=== PATIENT | male | born 1975 | race Two or more races ===

== ENCOUNTER 2018-02-25 11:01 | Emergency (ER) | payer MEDICAID ==
[~2018-02-25] VITALS: Ht 180.3 cm; Wt 130.0 kg
[2018-02-25 12:06] LABS: EOSINOPHILS % 1.7 % (0.0-5.0); HEMATOCRIT. 34.7 % (42.0-52.0); HEMOGLOBIN. 11.4 g/dL (14.0-18.0); LYMPHOCYTES % 35.7 % (20.0-50.0); MEAN CORPUSCULAR HEMOGLOBIN 31.1 pg (28.0-32.0); MEAN CORPUSCULAR VOLUME 94.5 fL (80.0-94.0); MEAN PLATELET VOLUME 8.4 fl (7.4-10.4); MONOCYTES % 8.9 % (2.0-8.0); NEUTROPHILS % 52.7 % (40.0-76.0); PLATELET 294 x1000/uL (130-400); RED BLOOD CELL COUNT 3.68 mill/uL (4.7-6.1); RED CELL DISTRIBUTION WIDTH 14.8 % (11.6-14.6)
[2018-02-25 12:07] LABS: CHLORIDE 98 mEq/L (98-107)
[2018-02-25 13:58] LABS: INR 3.1; PARTIAL THROMBOPLASTIN TIME 60.6 sec (23.4-31.0); PROTHROMBIN TIME 30.3 sec (9.1-11.1)
[2018-02-25 16:05] VITALS: BP 156/75
== END 2018-02-25 16:14 | disposition home or self-care (01) ==
LOC: ER 11:18 → CANRESERV 12:13 → ENRESERV 12:13 → ER 16:14 → CANBEDREQ 16:56
DX: T82.838A Hemorrhage due to vascular prosthetic devices, implants and grafts, initial encounter (principal); Y82.8 Other medical devices associated with adverse incidents; Y92.098 Other place in other non-institutional residence as the place of occurrence of the external cause; I12.0 Hypertensive chronic kidney disease with stage 5 chronic kidney disease or end stage renal disease; N18.6 End stage renal disease; E11.22 Type 2 diabetes mellitus with diabetic chronic kidney disease; E11.65 Type 2 diabetes mellitus with hyperglycemia; R74.8 Abnormal levels of other serum enzymes; R79.1 Abnormal coagulation profile; D64.9 Anemia, unspecified; Z99.2 Dependence on renal dialysis; Z79.899 Other long term (current) drug therapy; Z88.0 Allergy status to penicillin; Z88.1 Allergy status to other antibiotic agents
CPT/HCPCS: 12001; 36415; 93005; 99284

== ENCOUNTER 2022-06-29 12:23 | Inpatient (IN) | payer MEDICAID ==
[~2022-06-29] VITALS: Ht 198.1 cm; Wt 137.9 kg
[2022-06-29] VITALS: BP 126/78
[2022-06-29 15:30] LABS: HEMATOCRIT. 35.4 % (42.0-52.0); HEMOGLOBIN. 11.9 g/dL (14.0-18.0); MEAN CORPUSCULAR VOLUME 98.3 fL (80.0-94.0); MEAN PLATELET VOLUME 8.4 fl (7.4-10.4); PLATELET 111 x1000/uL (130-400); RED CELL DISTRIBUTION WIDTH 14.8 % (11.6-14.6)
[2022-06-29 15:37] LABS: CHLORIDE 91 mEq/L (98-107)
[2022-06-29] MEDS ORDERED: ENOXAPARIN 120MG/0.8ML SYR SUBCUT ONE (16:15)
[2022-06-29] MEDS ORDERED: ASPIRIN 325MG EC TABLET PO ONE (16:15)
[2022-06-29] MEDS ORDERED: ENOXAPARIN 150MG/ML SYR SUBCUT NR ×2 (16:45)
[2022-06-29] MEDS ORDERED: CALCIUM CHLORIDE 1GM/10ML SYR IV ONE (17:15)
[2022-06-29] MEDS ORDERED: HYDRALAZINE 20MG/ML VIAL IV PRN (18:00)
[2022-06-29] MEDS ORDERED: DEXTROSE 50% WATER 50ML SYRINGE IV PRN (18:15)
[2022-06-29] MEDS ORDERED: METOCLOPRAMIDE HCL 10MG/2ML VIAL IV NR (18:15)
[2022-06-29] MEDS: INSULIN LISPRO 100 UNITS/ML SUBCUT SCH ×2 (19:47→21:00)
[2022-06-29] MEDS ORDERED: CALCIUM CHLORIDE 1GM/10ML SYR IV NR (20:45)
[2022-06-29 20:48] LABS: PLATELET ESTIMATE DECREASED
[2022-06-29] MEDS: BLOOD SUGAR DIAGNOSTIC STRIP TEST SCH (20:56)
[2022-06-29 21:29] VITALS: BP 168/94
[2022-06-29] MEDS: INSULIN GLARGINE 100 UNITS/ML SUBCUT SCH (23:21)
[2022-06-30] VITALS (14 sets, daily range): BP systolic 89–155; BP diastolic 32–130
[2022-06-30 00:03] LABS: CREATINE KINASE MB FRACTION 2.8 ng/mL (0.5-3.6)
[2022-06-30] MEDS: ONDANSETRON HCL 4MG/2ML INJ IV PRN (03:51)
[2022-06-30] MEDS: ACETAMINOPHEN 325MG TABLET PO PRN ×2 (03:51→19:33)
[2022-06-30] MEDS ORDERED: ENOXAPARIN 150MG/ML SYR SUBCUT NR (05:00)
[2022-06-30] MEDS: BLOOD SUGAR DIAGNOSTIC STRIP TEST SCH ×4 (06:28→21:17)
[2022-06-30] MEDS: INSULIN LISPRO 100 UNITS/ML SUBCUT SCH ×7 (06:29→21:15)
[2022-06-30] MEDS ORDERED: VANCOMYCIN 1G PREMIX 200 ML IV SCH (07:30)
[2022-06-30 07:45] LABS: HEMATOCRIT. 35.9 % (42.0-52.0); MEAN CORPUSCULAR VOLUME 98.6 fL (80.0-94.0); MEAN PLATELET VOLUME 9.6 fl (7.4-10.4); PLATELET 112 x1000/uL (130-400); RED BLOOD CELL COUNT 3.64 mill/uL (4.7-6.1); RED CELL DISTRIBUTION WIDTH 15.7 % (11.6-14.6)
[2022-06-30] MEDS ORDERED: CARVEDILOL 3.125 MG TABLET PO SCH (09:00)
[2022-06-30] MEDS ORDERED: FAMOTIDINE 20MG/2ML VIAL IV SCH (09:00)
[2022-06-30] MEDS ORDERED: VANCOMYCIN 2,000 MG in DEXT 5% WATER 500 ML IV NR (09:30)
[2022-06-30 10:02] LABS: PROTHROMBIN TIME 10.8 sec (9.6-11.0)
[2022-06-30] MEDS: DILTIAZEM HCL 60MG TABLET PO SCH ×3 (10:10→21:17)
[2022-06-30] MEDS: PANTOPRAZOLE SODIUM 40 MG/VIAL IV SCH ×2 (11:58→17:54)
[2022-06-30] MEDS: AZTREONAM 1 G in DEXTROSE 5% WATER 50 ML IV SCH (12:12)
[2022-06-30] MEDS ORDERED: METOCLOPRAMIDE HCL 5MG TABLET PO SCH ×2 (12:45→13:00)
[2022-06-30 13:27] LABS: PLATELET ESTIMATE SLIGHTLY DECREASED
[2022-06-30] MEDS ORDERED: CHLORPROMAZINE HCL 25MG/1ML AMP IM NR (14:00)
[2022-06-30 15:04] LABS: HEPATITIS B SURFACE ANTIGEN NEGATIVE
[2022-06-30 16:54] LABS: PHOSPHORUS 3.6 mg/dL (2.5-4.9)
[2022-06-30] MEDS ORDERED: SODIUM POLYSTYRENE SULFONATE 15 G/60 ML BOT PO SCH (18:00)
[2022-06-30] MEDS ORDERED: CARVEDILOL 6.25 MG TABLET PO SCH (21:00)
[2022-06-30] MEDS: INSULIN GLARGINE 100 UNITS/ML SUBCUT SCH (21:15)
[2022-06-30] MEDS: METOCLOPRAMIDE HCL 10MG/2ML VIAL IV SCH ×2 (21:16→23:24)
[2022-07-01] VITALS (82 sets, daily range): BP systolic 62–132; BP diastolic 29–93
[2022-07-01] MEDS: METOCLOPRAMIDE HCL 10MG/2ML VIAL IV SCH ×3 (05:12→17:41)
[2022-07-01] MEDS: DILTIAZEM HCL 60MG TABLET PO SCH (05:13)
[2022-07-01] MEDS: BLOOD SUGAR DIAGNOSTIC STRIP TEST SCH ×4 (06:00→21:00)
[2022-07-01] MEDS: ACETAMINOPHEN 325MG TABLET PO PRN ×2 (06:05→22:55)
[2022-07-01] MEDS: INSULIN LISPRO 100 UNITS/ML SUBCUT SCH ×7 (06:06→21:38)
[2022-07-01 06:58] LABS: HEMATOCRIT. 30.6 % (42.0-52.0); HEMOGLOBIN. 10.5 g/dL (14.0-18.0); MEAN CORPUSCULAR HEMOGLOBIN 33.3 pg (28.0-32.0); MEAN CORPUSCULAR VOLUME 97.2 fL (80.0-94.0); PLATELET 95 x1000/uL (130-400); RED BLOOD CELL COUNT 3.15 mill/uL (4.7-6.1); RED CELL DISTRIBUTION WIDTH 15.4 % (11.6-14.6)
[2022-07-01] MEDS ORDERED: NOREPINEPHRINE 8MG/250ML PMX 250 ML IV ONE (08:30)
[2022-07-01] MEDS: PANTOPRAZOLE SODIUM 40 MG/VIAL IV SCH ×2 (09:54→17:41)
[2022-07-01] MEDS: ASPIRIN 325MG EC TABLET PO SCH (09:54)
[2022-07-01] MEDS: AZTREONAM 1 G in DEXTROSE 5% WATER 50 ML IV SCH (09:55)
[2022-07-01] MEDS ORDERED: ENOXAPARIN 150MG/ML SYR SUBCUT SCH (10:00)
[2022-07-01] MEDS: DOPAMINE 400MG/250ML PREMIX 250 ML IV PRN (10:48)
[2022-07-01] MEDS ORDERED: BACLOFEN 10MG TABLET PO SCH (11:30)
[2022-07-01] MEDS ORDERED: CHLORPROMAZINE HCL 25MG/1ML AMP IM NR (14:00)
[2022-07-01 14:07] LABS: PLATELET ESTIMATE DECREASED
[2022-07-01] MEDS ORDERED: VANCOMYCIN 500MG PREMIX 100 ML IV NR (18:00)
[2022-07-01] MEDS: ONDANSETRON HCL 4MG/2ML INJ IV PRN (19:23)
[2022-07-01] MEDS: CARVEDILOL 3.125 MG TABLET PO SCH (21:00)
[2022-07-01] MEDS: ATORVASTATIN CALCIUM 40MG TABLET PO SCH (21:36)
[2022-07-01] MEDS: INSULIN GLARGINE 100 UNITS/ML SUBCUT SCH (21:38)
[2022-07-02] VITALS (104 sets, daily range): BP systolic 55–147; BP diastolic 1–115
[2022-07-02] MEDS: METOCLOPRAMIDE HCL 10MG/2ML VIAL IV SCH ×4 (00:03→17:56)
[2022-07-02] MEDS: DOPAMINE 400MG/250ML PREMIX 250 ML IV PRN ×2 (00:04→15:20)
[2022-07-02 05:11] LABS: BASOPHILS % 0.4 % (0.0-2.0); EOSINOPHILS % 0.1 % (0.0-5.0); HEMATOCRIT. 31.2 % (42.0-52.0); HEMOGLOBIN. 10.4 g/dL (14.0-18.0); LYMPHOCYTES % 8.3 % (20.0-50.0); MEAN CORPUSCULAR HEMOGLOBIN 32.2 pg (28.0-32.0); MEAN CORPUSCULAR VOLUME 96.8 fL (80.0-94.0); MEAN PLATELET VOLUME 10.1 fl (7.4-10.4); MONOCYTES % 6.5 % (2.0-8.0); NEUTROPHILS % 84.7 % (40.0-76.0); PLATELET 122 x1000/uL (130-400); RED BLOOD CELL COUNT 3.22 mill/uL (4.7-6.1)
[2022-07-02 05:28] LABS: PROTHROMBIN TIME 10.4 sec (9.6-11.0)
[2022-07-02 05:54] LABS: VITAMIN B12 SERUM 1376 pg/mL (211-911)
[2022-07-02 06:33] LABS: FERRITIN 5127 ng/mL (22-322)
[2022-07-02] MEDS: INSULIN LISPRO 100 UNITS/ML SUBCUT SCH ×7 (07:50→21:00)
[2022-07-02] MEDS ORDERED: NICARDIPINE 100MCG/ML 10ML VIAL (CATH LAB) IV ONE (08:00)
[2022-07-02] MEDS ORDERED: NITROGLYCERIN 50MCG/ML 10ML VIAL (CATH LAB) IV ONE (08:00)
[2022-07-02] MEDS ORDERED: PHENYLEPHRINE 100MCG/ML 10ML VIAL (CATH LAB) ONE (08:00)
[2022-07-02] MEDS: BLOOD SUGAR DIAGNOSTIC STRIP TEST SCH ×4 (08:11→21:57)
[2022-07-02] MEDS: CARVEDILOL 3.125 MG TABLET PO SCH ×2 (08:12→21:00)
[2022-07-02] MEDS: ASPIRIN 325MG EC TABLET PO SCH (08:13)
[2022-07-02] MEDS: PANTOPRAZOLE SODIUM 40 MG/VIAL IV SCH ×2 (08:59→17:56)
[2022-07-02] MEDS ORDERED: MIDAZOLAM HCL 2 MG/2 ML VIAL ONE (11:45)
[2022-07-02] MEDS ORDERED: FENTANYL CITRATE/PF 50MCG/ML 2ML VIAL ONE (11:45)
[2022-07-02] MEDS ORDERED: IODIXANOL 320MG/ML 100 ML BOTTLE IV ONE (12:38)
[2022-07-02] MEDS ORDERED: ASPIRIN 325MG TABLET ONE (12:49)
[2022-07-02] MEDS ORDERED: CLOPIDOGREL 75MG TABLET ONE (12:50)
[2022-07-02] MEDS ORDERED: ACETAMINOPHEN 325MG TABLET PO PRN (13:15)
[2022-07-02] MEDS ORDERED: ATROPINE SULFATE 1MG/10ML SYR IV PRN (13:15)
[2022-07-02] MEDS ORDERED: ONDANSETRON HCL 4MG/2ML INJ IV PRN (13:15)
[2022-07-02] MEDS: ATORVASTATIN CALCIUM 40MG TABLET PO SCH (21:50)
[2022-07-02] MEDS: INSULIN GLARGINE 100 UNITS/ML SUBCUT SCH (22:04)
[2022-07-02] MEDS: ACETAMINOPHEN 325MG TABLET PO PRN (23:36)
[2022-07-03] VITALS (76 sets, daily range): BP systolic 67–292; BP diastolic 36–292
[2022-07-03] MEDS: METOCLOPRAMIDE HCL 10MG/2ML VIAL IV SCH ×3 (06:52→12:30)
[2022-07-03 07:11] LABS: HEMATOCRIT. 30.4 % (42.0-52.0); HEMOGLOBIN. 10.5 g/dL (14.0-18.0); MEAN CORPUSCULAR HEMOGLOBIN 33.3 pg (28.0-32.0); MEAN CORPUSCULAR VOLUME 96.4 fL (80.0-94.0); MEAN PLATELET VOLUME 9.5 fl (7.4-10.4); PLATELET 168 x1000/uL (130-400); RED BLOOD CELL COUNT 3.15 mill/uL (4.7-6.1); RED CELL DISTRIBUTION WIDTH 15.3 % (11.6-14.6)
[2022-07-03 08:20] LABS: PLATELET ESTIMATE NORMAL
[2022-07-03] MEDS: INSULIN LISPRO 100 UNITS/ML SUBCUT SCH ×7 (08:30→21:00)
[2022-07-03] MEDS: BLOOD SUGAR DIAGNOSTIC STRIP TEST SCH ×4 (08:33→21:00)
[2022-07-03] MEDS ORDERED: ASPIRIN 325MG TABLET PO SCH (09:00)
[2022-07-03] MEDS: MIDODRINE HCL 5MG TABLET PO SCH ×3 (09:46→17:35)
[2022-07-03] MEDS: CARVEDILOL 3.125 MG TABLET PO SCH ×2 (09:46→21:00)
[2022-07-03] MEDS: CLOPIDOGREL 75MG TABLET PO SCH (09:47)
[2022-07-03] MEDS: ASPIRIN 81MG EC TABLET PO SCH (09:47)
[2022-07-03] MEDS: PANTOPRAZOLE SODIUM 40 MG/VIAL IV SCH ×2 (09:47→18:25)
[2022-07-03] MEDS: FOLIC ACID 1MG TABLET PO SCH (09:47)
[2022-07-03] MEDS: ATORVASTATIN CALCIUM 40MG TABLET PO SCH (21:18)
[2022-07-03] MEDS: INSULIN GLARGINE 100 UNITS/ML SUBCUT SCH (22:00)
[2022-07-04] VITALS (28 sets, daily range): BP systolic 96–155; BP diastolic 45–80
[2022-07-04 06:54] LABS: HEMATOCRIT. 32.2 % (42.0-52.0); HEMOGLOBIN. 11.1 g/dL (14.0-18.0); MEAN CORPUSCULAR HEMOGLOBIN 33.1 pg (28.0-32.0); MEAN CORPUSCULAR VOLUME 96.2 fL (80.0-94.0); MEAN PLATELET VOLUME 8.9 fl (7.4-10.4); PLATELET 231 x1000/uL (130-400); RED BLOOD CELL COUNT 3.35 mill/uL (4.7-6.1); RED CELL DISTRIBUTION WIDTH 15.7 % (11.6-14.6)
[2022-07-04] MEDS: INSULIN LISPRO 100 UNITS/ML SUBCUT SCH ×4 (07:50→13:10)
[2022-07-04] MEDS: BLOOD SUGAR DIAGNOSTIC STRIP TEST SCH ×2 (08:14→12:26)
[2022-07-04] MEDS: CARVEDILOL 3.125 MG TABLET PO SCH (09:00)
[2022-07-04] MEDS: MIDODRINE HCL 5MG TABLET PO SCH ×2 (09:00→12:32)
[2022-07-04] MEDS: PANTOPRAZOLE SODIUM 40 MG/VIAL IV SCH (09:00)
[2022-07-04] MEDS: ASPIRIN 81MG EC TABLET PO SCH (09:37)
[2022-07-04] MEDS: FOLIC ACID 1MG TABLET PO SCH (09:37)
[2022-07-04] MEDS: CLOPIDOGREL 75MG TABLET PO SCH (09:37)
[2022-07-04] MEDS ORDERED: CLOP-31 PO (11:43)
[2022-07-04] MEDS ORDERED: ASPI-1406 PO (11:43)
[2022-07-04] MEDS ORDERED: FAMO-135 MT (11:43)
[2022-07-04] MEDS ORDERED: LIP40 PO (11:43)
[2022-07-04] MEDS ORDERED: COR3 PO (11:43)
[2022-07-04] MEDS ORDERED: FOLI-43 PO (11:43)
[2022-07-04] MEDS ORDERED: MIDO5TAB4 PO (11:43)
[2022-07-04 16:57] LABS: PLATELET ESTIMATE NORMAL
[2022-07-04] MEDS ORDERED: VANCOMYCIN 750MG PREMIX 150 ML IV NR (18:00)
== END 2022-07-04 13:00 | disposition home or self-care (01) | DRG 710 ==
LOC: ER 12:45 → 3WST 17:10 → CVICU 07-01 08:50
PROVIDERS: ADMIT Internal Medicine; ATTEND Internal Medicine
PROC: 05HY33Z Insertion of Infusion Device into Upper Vein, Percutaneous Approach (ICD-10-PCS; 2022-06-30)
PROC: B54NZZA Ultrasonography of Left Upper Extremity Veins, Guidance (ICD-10-PCS; 2022-06-30)
PROC: 5A1D70Z Performance of Urinary Filtration, Intermittent, Less than 6 Hours Per Day (ICD-10-PCS; 2022-06-30)
PROC: 5A1D70Z Performance of Urinary Filtration, Intermittent, Less than 6 Hours Per Day (ICD-10-PCS; 2022-07-01)
PROC: 027135Z Dilation of Coronary Artery, Two Arteries with Two Drug-eluting Intraluminal Devices, Percutaneous Approach (ICD-10-PCS; principal; 2022-07-02)
PROC: 4A023N7 Measurement of Cardiac Sampling and Pressure, Left Heart, Percutaneous Approach (ICD-10-PCS; 2022-07-02)
PROC: B2111ZZ Fluoroscopy of Multiple Coronary Arteries using Low Osmolar Contrast (ICD-10-PCS; 2022-07-02)
PROC: 02703ZZ Dilation of Coronary Artery, One Artery, Percutaneous Approach (ICD-10-PCS; 2022-07-02)
PROC: 5A1D70Z Performance of Urinary Filtration, Intermittent, Less than 6 Hours Per Day (ICD-10-PCS; 2022-07-02)
PROC: 5A1D70Z Performance of Urinary Filtration, Intermittent, Less than 6 Hours Per Day (ICD-10-PCS; 2022-07-04)
DX: A41.9 Sepsis, unspecified organism (principal); J96.01 Acute respiratory failure with hypoxia; R65.21 Severe sepsis with septic shock; I21.4 Non-ST elevation (NSTEMI) myocardial infarction; E43 Unspecified severe protein-calorie malnutrition; D69.6 Thrombocytopenia, unspecified; I13.2 Hypertensive heart and chronic kidney disease with heart failure and with stage 5 chronic kidney disease, or end stage renal disease; E87.1 Hypo-osmolality and hyponatremia; T82.855A Stenosis of coronary artery stent, initial encounter; K92.0 Hematemesis; I25.10 Atherosclerotic heart disease of native coronary artery without angina pectoris; I82.411 Acute embolism and thrombosis of right femoral vein; N18.6 End stage renal disease; I50.9 Heart failure, unspecified; E11.22 Type 2 diabetes mellitus with diabetic chronic kidney disease; E11.65 Type 2 diabetes mellitus with hyperglycemia; E66.9 Obesity, unspecified; E87.5 Hyperkalemia; G47.33 Obstructive sleep apnea (adult) (pediatric); E11.51 Type 2 diabetes mellitus with diabetic peripheral angiopathy without gangrene; E11.621 Type 2 diabetes mellitus with foot ulcer; E11.42 Type 2 diabetes mellitus with diabetic polyneuropathy; L50.9 Urticaria, unspecified; Y83.1 Surgical operation with implant of artificial internal device as the cause of abnormal reaction of the patient, or of later complication, without mention of misadventure at the time of the procedure; R74.01 Elevation of levels of liver transaminase levels; L97.828 Non-pressure chronic ulcer of other part of left lower leg with other specified severity; L97.818 Non-pressure chronic ulcer of other part of right lower leg with other specified severity; Z20.822 Contact with and (suspected) exposure to COVID-19; Z88.0 Allergy status to penicillin; Z89.512 Acquired absence of left leg below knee; Z99.2 Dependence on renal dialysis; Z79.01 Long term (current) use of anticoagulants; Z79.82 Long term (current) use of aspirin; Z82.3 Family history of stroke; Z82.49 Family history of ischemic heart disease and other diseases of the circulatory system; Z86.718 Personal history of other venous thrombosis and embolism; Z88.1 Allergy status to other antibiotic agents; Z79.4 Long term (current) use of insulin; I25.2 Old myocardial infarction; Z74.01 Bed confinement status; Z79.02 Long term (current) use of antithrombotics/antiplatelets; Z79.899 Other long term (current) drug therapy; Y92.89 Other specified places as the place of occurrence of the external cause; Z68.35 Body mass index [BMI] 35.0-35.9, adult
CPT/HCPCS: 36415; 36573; 71045; 74176; 80048; 80053; 80202; 82550; 82553; 82607; 82728; 82746; 82962; 83036; 83540; 83550; 83605; 83735; 83880; 84100; 84145; 84484; 85025; 85044; 85347; 85651; 86705; 86709; 86803; 87077; 87186; 87340; 87426; 90935; 92928; 92929; 93005; 93306; 93458; 93970; 99291; A9547; C1725; C1726; C1769; C1874; C1887; C1893; C9113; J1265; J1650; J1815; J2250; J2370; J2405; J2765; J3010; J3230; J3370; J3490; J7060; J8597; Q9967